=== PATIENT | female | born 1935 | race African-American/Black ===

== ENCOUNTER 2020-04-10 07:14 | Inpatient (IN) | payer MEDICARE, MEDICAID ==
[~2020-04-10] VITALS: Ht 165.1 cm; Wt 103.0 kg
[2020-04-10] VITALS (36 sets, daily range): BP systolic 108–182; BP diastolic 41–72
[2020-04-10] MEDS ORDERED: ALBUTEROL (0.5%) 2.5MG/0.5ML NEB HHN ONE (08:00)
[2020-04-10] MEDS ORDERED: ACETAMINOPHEN 650MG SUPP PR ONE (08:00)
[2020-04-10] MEDS ORDERED: IPRATROPIUM BROMIDE (0.02%) 0.5MG/2.5ML NEB HHN ONE (08:00)
[2020-04-10] MEDS ORDERED: LEVOFLOXACIN 500MG PREMIX 100 ML IV ONE (08:00)
[2020-04-10] MEDS ORDERED: CEFTRIAXONE 1 G PREMIX 50 ML IV ONE (08:00)
[2020-04-10 08:25] LABS: BG BASE EXCESS 9.8 mmol/L (-2.0-2.0); BG BILEVEL POS AIRWAY PRESSURE 18/5; BG CARBOXYHEMOGLOBIN 1.6 % (0.5-1.5); BG DEOXYHEMOGLOBIN 0.6 % (0.0-5.0); BG FRACTION INSPIRED OXYGEN 100; BG HCO3 ACT 42.7 mmol/L (22.0-26.0); BG METHEMOGLOBIN 0.2 % (0.0-1.5); BG OXYGEN SATURATION 99.4 % (92.0-98.5); BG OXYHEMOGLOBIN 97.6 % (94.0-97.0); BG PCO2 121.1 mmHg (35.0-45.0); BG PH 7.165 (7.350-7.450); BG PO2 224.4 mmHg (75.0-100.0); BG SAMPLE SITE RIGHT RADIAL; BG TOTAL HEMOGLOBIN 12.6 g/dL (12.0-18.0); BG VENT MODE MASK - BIPAP; BG VENT RATE 30 set
[2020-04-10 08:40] LABS: BASOPHILS % 0.2 % (0.0-2.0); EOSINOPHILS % 0.3 % (0.0-5.0); HEMATOCRIT. 40.7 % (36.0-48.0); HEMOGLOBIN. 12.4 g/dL (12.0-16.0); LYMPHOCYTES % 17.9 % (20.0-50.0); MEAN CORPUSCULAR HEMOGLOBIN 25.4 pg (28.0-32.0); MEAN CORPUSCULAR VOLUME 83.9 fL (81.0-99.0); MEAN PLATELET VOLUME 8.4 fl (7.4-10.4); MONOCYTES % 11.9 % (2.0-8.0); NEUTROPHILS % 69.7 % (40.0-76.0); PLATELET 202 x1000/uL (130-400); RED BLOOD CELL COUNT 4.86 mill/uL (4.2-5.4); RED CELL DISTRIBUTION WIDTH 20.6 % (11.6-14.6)
[2020-04-10 08:42] LABS: CHLORIDE 100 mEq/L (98-107)
[2020-04-10 10:40] LABS: BG BASE EXCESS 9.8 mmol/L (-2.0-2.0); BG BILEVEL POS AIRWAY PRESSURE 18/5; BG CARBOXYHEMOGLOBIN 1.1 % (0.5-1.5); BG DEOXYHEMOGLOBIN 4.1 % (0.0-5.0); BG HCO3 ACT 39.3 mmol/L (22.0-26.0); BG METHEMOGLOBIN 0.3 % (0.0-1.5); BG OXYGEN SATURATION 95.8 % (92.0-98.5); BG OXYHEMOGLOBIN 94.5 % (94.0-97.0); BG PCO2 82.5 mmHg (35.0-45.0); BG PH 7.296 (7.350-7.450); BG PO2 81.7 mmHg (75.0-100.0); BG SAMPLE SITE RIGHT RADIAL; BG TOTAL HEMOGLOBIN 12.4 g/dL (12.0-18.0); BG VENT MODE MASK - BIPAP; BG VENT RATE 30 set
[2020-04-10] MEDS ORDERED: ONDANSETRON HCL 4MG/2ML INJ IV PRN (13:45)
[2020-04-10] MEDS: SODIUM CHLORIDE 0.9% INJ 3ML FLUSH IVF SCH ×2 (14:40→21:54)
[2020-04-10 14:43] LABS: BG BASE EXCESS 9.8 mmol/L (-2.0-2.0); BG BILEVEL POS AIRWAY PRESSURE 18/5; BG CARBOXYHEMOGLOBIN 0.5 % (0.5-1.5); BG DEOXYHEMOGLOBIN 4.1 % (0.0-5.0); BG HCO3 ACT 39.1 mmol/L (22.0-26.0); BG METHEMOGLOBIN 0.3 % (0.0-1.5); BG OXYGEN SATURATION 95.9 % (92.0-98.5); BG OXYHEMOGLOBIN 95.1 % (94.0-97.0); BG PCO2 81.9 mmHg (35.0-45.0); BG PH 7.297 (7.350-7.450); BG PO2 80.8 mmHg (75.0-100.0); BG SAMPLE SITE RIGHT RADIAL; BG VENT MODE MASK - BIPAP; BG VENT RATE 30 set
[2020-04-10] MEDS: POTASSIUM CHLORIDE 20MEQ/PACKET PO SCH (15:00)
[2020-04-10] MEDS ORDERED: ENOXAPARIN 40MG/0.4ML SYR SUBCUT SCH (15:00)
[2020-04-10] MEDS: MIDAZOLAM HCL 100 MG in DEXT 5% WATER 80 ML IV PRN (16:30)
[2020-04-10] MEDS: FENTANYL CITRATE/PF 1,000 MCG in SODIUM CHLORIDE 0.9% 80 ML IV PRN (16:31)
[2020-04-10 16:37] LABS: BG BASE EXCESS 11.4 mmol/L (-2.0-2.0); BG CARBOXYHEMOGLOBIN 0.7 % (0.5-1.5); BG DEOXYHEMOGLOBIN 2.6 % (0.0-5.0); BG HCO3 ACT 35.4 mmol/L (22.0-26.0); BG METHEMOGLOBIN 0.1 % (0.0-1.5); BG OXYGEN SATURATION 97.4 % (92.0-98.5); BG OXYHEMOGLOBIN 96.6 % (94.0-97.0); BG PCO2 44.2 mmHg (35.0-45.0); BG PH 7.522 (7.350-7.450); BG PO2 77.9 mmHg (75.0-100.0); BG SAMPLE SITE RIGHT RADIAL; BG TIDAL VOLUME(mL) 500 mL; BG TOTAL HEMOGLOBIN 12.5 g/dL (12.0-18.0); BG VENT MODE VENT - A/C; BG VENT RATE 18 set
[2020-04-10] MEDS ORDERED: ACETAMINOPHEN 650MG SUPP PR PRN (17:00)
[2020-04-10] MEDS ORDERED: ACETAMINOPHEN 325MG TABLET PO PRN (17:00)
[2020-04-10] MEDS ORDERED: DIPHENHYDRAMINE 50MG/ML VIAL IV PRN (17:00)
[2020-04-10] MEDS: METHYLPREDNISOLONE SOD SUCC 40 MG/ML VIAL IV SCH (18:14)
[2020-04-10] MEDS: ASPIRIN 81MG TABLET PO SCH (18:14)
[2020-04-10] MEDS: FUROSEMIDE 20MG/2ML VIAL IVP SCH (18:14)
[2020-04-10] MEDS: PIPERACILLIN/TAZOBACTAM 3.375 G in DEXT 5% WATER 100 ML IV SCH ×2 (18:16→23:36)
[2020-04-10] MEDS: HYDRALAZINE 20MG/ML VIAL IV PRN (18:17)
[2020-04-10 19:24] LABS: CREATINE KINASE 26 IU/L (26-192)
[2020-04-10 19:25] LABS: CREATINE KINASE MB FRACTION < 1.0 ng/mL (0.5-3.6)
[2020-04-10] MEDS ORDERED: CALC-889 MT (20:19)
[2020-04-10] MEDS ORDERED: POLY15DR31 EACHEYE (20:19)
[2020-04-10] MEDS ORDERED: ASPI-1079 PO (20:19)
[2020-04-10] MEDS ORDERED: POTA-9 PO (20:19)
[2020-04-10] MEDS ORDERED: FURO40TA5 PO (20:19)
[2020-04-10] MEDS ORDERED: OMEP20TA2 PO (20:19)
[2020-04-10] MEDS ORDERED: ATEN100T PO (20:19)
[2020-04-10] MEDS ORDERED: IBUP-2437 PO (20:19)
[2020-04-10] MEDS ORDERED: MULT-1146 PO (20:19)
[2020-04-10] MEDS ORDERED: ISOS20TA57 PO (20:19)
[2020-04-10] MEDS ORDERED: NIFE-32 PO (20:19)
[2020-04-10] MEDS ORDERED: TAMS-11 PO (20:19)
[2020-04-11] VITALS (90 sets, daily range): BP systolic 110–192; BP diastolic 40–74
[2020-04-11] MEDS: METHYLPREDNISOLONE SOD SUCC 40 MG/ML VIAL IV SCH ×3 (02:05→19:51)
[2020-04-11] MEDS: HYDRALAZINE 20MG/ML VIAL IV PRN ×2 (03:25→12:56)
[2020-04-11] MEDS: MIDAZOLAM HCL 100 MG in DEXT 5% WATER 80 ML IV PRN ×2 (03:40→15:59)
[2020-04-11] MEDS: FENTANYL CITRATE/PF 1,000 MCG in SODIUM CHLORIDE 0.9% 80 ML IV PRN (04:08)
[2020-04-11 06:03] LABS: HEMATOCRIT. 40.2 % (36.0-48.0); HEMOGLOBIN. 12.4 g/dL (12.0-16.0); MEAN CORPUSCULAR HEMOGLOBIN 25.2 pg (28.0-32.0); MEAN CORPUSCULAR VOLUME 81.3 fL (81.0-99.0); MEAN PLATELET VOLUME 8.1 fl (7.4-10.4); PLATELET 185 x1000/uL (130-400); RED BLOOD CELL COUNT 4.95 mill/uL (4.2-5.4); RED CELL DISTRIBUTION WIDTH 20.3 % (11.6-14.6)
[2020-04-11] MEDS: PIPERACILLIN/TAZOBACTAM 3.375 G in DEXT 5% WATER 100 ML IV SCH ×3 (06:04→19:51)
[2020-04-11] MEDS: SODIUM CHLORIDE 0.9% INJ 3ML FLUSH IVF SCH ×3 (06:10→22:45)
[2020-04-11 06:13] LABS: CHLORIDE 100 mEq/L (98-107)
[2020-04-11] MEDS: FUROSEMIDE 20MG/2ML VIAL IVP SCH ×2 (06:13→19:52)
[2020-04-11 06:22] LABS: LDL CHOLESTEROL 79 mg/dL (5-100)
[2020-04-11 06:24] LABS: HDL CHOLESTEROL 25 mg/dL (40-59)
[2020-04-11] MEDS ORDERED: LEVOFLOXACIN 500MG PREMIX 100 ML IV SCH (08:00)
[2020-04-11 08:36] LABS: BG CARBOXYHEMOGLOBIN 0.3 % (0.5-1.5); BG DEOXYHEMOGLOBIN 1.4 % (0.0-5.0); BG FRACTION INSPIRED OXYGEN 60; BG HCO3 ACT 35.9 mmol/L (22.0-26.0); BG METHEMOGLOBIN 0.3 % (0.0-1.5); BG OXYGEN SATURATION 98.6 % (92.0-98.5); BG PCO2 38.8 mmHg (35.0-45.0); BG PH 7.584 (7.350-7.450); BG PO2 124.6 mmHg (75.0-100.0); BG SAMPLE SITE RIGHT RADIAL; BG TIDAL VOLUME(mL) 500 mL; BG TOTAL HEMOGLOBIN 10.9 g/dL (12.0-18.0); BG VENT MODE VENT - A/C; BG VENT RATE 16 set
[2020-04-11 10:07] LABS: PLATELET ESTIMATE NORMAL
[2020-04-11] MEDS: POTASSIUM CHLORIDE 20MEQ/PACKET PO SCH (10:53)
[2020-04-11] MEDS: ASPIRIN 81MG TABLET PO SCH (10:53)
[2020-04-11] MEDS: LACTULOSE 20G/30ML UDC PO SCH ×2 (14:40→22:45)
[2020-04-11 15:52] LABS: BG BASE EXCESS 6.2 mmol/L (-2.0-2.0); BG CARBOXYHEMOGLOBIN 0.5 % (0.5-1.5); BG DEOXYHEMOGLOBIN 2.2 % (0.0-5.0); BG FRACTION INSPIRED OXYGEN 50; BG HCO3 ACT 29.7 mmol/L (22.0-26.0); BG METHEMOGLOBIN 0.2 % (0.0-1.5); BG OXYGEN SATURATION 97.8 % (92.0-98.5); BG OXYHEMOGLOBIN 97.1 % (94.0-97.0); BG PCO2 39.2 mmHg (35.0-45.0); BG PH 7.498 (7.350-7.450); BG PO2 102.4 mmHg (75.0-100.0); BG PRESSURE SUPPORT 8; BG SAMPLE SITE RIGHT RADIAL; BG TIDAL VOLUME(mL) 500 mL; BG TOTAL HEMOGLOBIN 13.3 g/dL (12.0-18.0); BG VENT MODE VENT - SIMV; BG VENT RATE 10 set
[2020-04-11 18:04] LABS: D-DIMER 2.59 mg/L FEU (<0.50); INR 1.1; PROTHROMBIN TIME 11.9 sec (9.6-11.0)
[2020-04-11 18:26] LABS: CLARITY URINE CLEAR (CLEAR); KETONES URINE 2+ (NEGATIVE); LEUKOCYTE ESTERASE URINE NEGATIVE (NEGATIVE); NITRITE URINE NEGATIVE (NEGATIVE); OCCULT BLOOD URINE NEGATIVE (NEGATIVE); PROTEIN URINE NEGATIVE (NEGATIVE); SPECIFIC GRAVITY URINE 1.017 (1.005-1.030); UROBILINOGEN URINE 0.2 E.U./dL (0.2-1.0)
[2020-04-11 18:28] LABS: COLOR URINE YELLOW (YELLOW)
[2020-04-11 18:40] LABS: *AMPHETAMINES SCREEN URINE NEGATIVE (NEGATIVE); *BARBITURATES SCREEN URINE NEGATIVE (NEGATIVE)
[2020-04-11 18:41] LABS: *BENZODIAZEPINES SCREEN URINE PRESUMTIVE POSITIVE (NEGATIVE); *COCAINE SCREEN URINE NEGATIVE (NEGATIVE); CANNABINOID URINE SCREEN NEGATIVE (NEGATIVE); METHADONE URINE SCREEN NEGATIVE (NEGATIVE); OPIATES URINE SCREEN NEGATIVE (NEGATIVE); PHENCYCLIDINE URINE SCREEN NEGATIVE (NEGATIVE)
[2020-04-11] MEDS: ENOXAPARIN 30MG/0.3ML SYR SUBCUT SCH (20:17)
[2020-04-11] MEDS: IPRATROPIUM/ALBUTEROL 0.5-3(2.5)MG/3ML NEB HHN PRN (20:20)
[2020-04-11 20:29] LABS: BG BASE EXCESS 5.4 mmol/L (-2.0-2.0); BG CARBOXYHEMOGLOBIN 0.8 % (0.5-1.5); BG DEOXYHEMOGLOBIN 1.9 % (0.0-5.0); BG FRACTION INSPIRED OXYGEN 50; BG HCO3 ACT 33.6 mmol/L (22.0-26.0); BG METHEMOGLOBIN 0.2 % (0.0-1.5); BG OXYGEN SATURATION 98.1 % (92.0-98.5); BG OXYHEMOGLOBIN 97.1 % (94.0-97.0); BG PCO2 67.7 mmHg (35.0-45.0); BG PH 7.314 (7.350-7.450); BG PO2 119.2 mmHg (75.0-100.0); BG PRESSURE SUPPORT 8; BG SAMPLE SITE RIGHT RADIAL; BG TOTAL HEMOGLOBIN 12.8 g/dL (12.0-18.0); BG VENT MODE VENT - CPAP
[2020-04-11] MEDS: HYDRALAZINE HCL 25MG TABLET PO SCH (22:45)
[2020-04-12] VITALS (76 sets, daily range): BP systolic 125–181; BP diastolic 49–86
[2020-04-12] MEDS: PIPERACILLIN/TAZOBACTAM 3.375 G in DEXT 5% WATER 100 ML IV SCH ×5 (00:01→23:38)
[2020-04-12] MEDS: IPRATROPIUM/ALBUTEROL 0.5-3(2.5)MG/3ML NEB HHN PRN ×4 (04:34→16:12)
[2020-04-12] MEDS: SODIUM CHLORIDE 0.9% INJ 3ML FLUSH IVF SCH ×3 (05:27→22:00)
[2020-04-12] MEDS: FUROSEMIDE 20MG/2ML VIAL IVP SCH ×2 (05:27→18:15)
[2020-04-12] MEDS: METHYLPREDNISOLONE SOD SUCC 40 MG/ML VIAL IV SCH ×2 (05:27→18:15)
[2020-04-12] MEDS: LACTULOSE 20G/30ML UDC PO SCH ×4 (05:28→22:00)
[2020-04-12] MEDS: HYDRALAZINE HCL 25MG TABLET PO SCH ×3 (05:28→20:45)
[2020-04-12 05:36] LABS: BASOPHILS % 0.2 % (0.0-2.0); HEMATOCRIT. 41.8 % (36.0-48.0); HEMOGLOBIN. 13.4 g/dL (12.0-16.0); LYMPHOCYTES % 7.3 % (20.0-50.0); MEAN CORPUSCULAR HEMOGLOBIN 25.4 pg (28.0-32.0); MEAN CORPUSCULAR VOLUME 78.9 fL (81.0-99.0); MEAN PLATELET VOLUME 8.5 fl (7.4-10.4); MONOCYTES % 4.5 % (2.0-8.0); PLATELET 200 x1000/uL (130-400); RED BLOOD CELL COUNT 5.29 mill/uL (4.2-5.4)
[2020-04-12 05:47] LABS: CHLORIDE 101 mEq/L (98-107)
[2020-04-12 05:52] LABS: PHOSPHORUS 1.9 mg/dL (2.5-4.9)
[2020-04-12 06:27] LABS: HEPATITIS B SURFACE ANTIGEN NEGATIVE
[2020-04-12 06:57] LABS: HEPATITIS A AB IGM NEGATIVE (NEGATIVE)
[2020-04-12] MEDS: ENOXAPARIN 30MG/0.3ML SYR SUBCUT SCH ×2 (09:00→20:46)
[2020-04-12] MEDS: ASPIRIN 81MG TABLET PO SCH (09:00)
[2020-04-12] MEDS: POTASSIUM CHLORIDE 20MEQ/PACKET PO SCH (09:00)
[2020-04-12 11:03] LABS: BG BASE EXCESS 5.9 mmol/L (-2.0-2.0); BG CARBOXYHEMOGLOBIN 0.6 % (0.5-1.5); BG DEOXYHEMOGLOBIN 3.2 % (0.0-5.0); BG FRACTION INSPIRED OXYGEN 35; BG METHEMOGLOBIN 0.3 % (0.0-1.5); BG OXYGEN SATURATION 96.8 % (92.0-98.5); BG OXYHEMOGLOBIN 95.9 % (94.0-97.0); BG PCO2 41.4 mmHg (35.0-45.0); BG PH 7.478 (7.350-7.450); BG PO2 90.8 mmHg (75.0-100.0); BG PRESSURE SUPPORT 10; BG SAMPLE SITE RIGHT RADIAL; BG TOTAL HEMOGLOBIN 13.6 g/dL (12.0-18.0); BG VENT MODE VENT - CPAP
[2020-04-12] MEDS ORDERED: LIDOCAINE HCL 1% 20ML VIAL (Pyxis) INJ ONE (11:55)
[2020-04-12 15:26] LABS: BG BASE EXCESS 6.3 mmol/L (-2.0-2.0); BG CARBOXYHEMOGLOBIN 0.9 % (0.5-1.5); BG DEOXYHEMOGLOBIN 3.9 % (0.0-5.0); BG FRACTION INSPIRED OXYGEN 40; BG METHEMOGLOBIN 0.2 % (0.0-1.5); BG OXYGEN SATURATION 96.1 % (92.0-98.5); BG PCO2 63.3 mmHg (35.0-45.0); BG PH 7.348 (7.350-7.450); BG PO2 91.5 mmHg (75.0-100.0); BG SAMPLE SITE RIGHT RADIAL; BG TOTAL HEMOGLOBIN 13.5 g/dL (12.0-18.0); BG VENT MODE MASK - AEROSOL
[2020-04-12] MEDS: HYDRALAZINE 20MG/ML VIAL IV PRN (16:30)
[2020-04-13] VITALS (39 sets, daily range): BP systolic 133–177; BP diastolic 45–81
[2020-04-13 05:47] LABS: HEMATOCRIT. 39.9 % (36.0-48.0); HEMOGLOBIN. 12.4 g/dL (12.0-16.0); MEAN CORPUSCULAR HEMOGLOBIN 25.4 pg (28.0-32.0); MEAN CORPUSCULAR VOLUME 81.4 fL (81.0-99.0); MEAN PLATELET VOLUME 8.5 fl (7.4-10.4); PLATELET 178 x1000/uL (130-400); RED CELL DISTRIBUTION WIDTH 20.6 % (11.6-14.6)
[2020-04-13] MEDS: PIPERACILLIN/TAZOBACTAM 3.375 G in DEXT 5% WATER 100 ML IV SCH ×3 (05:48→18:20)
[2020-04-13] MEDS: HYDRALAZINE HCL 25MG TABLET PO SCH ×3 (05:49→22:04)
[2020-04-13] MEDS: FUROSEMIDE 20MG/2ML VIAL IVP SCH ×2 (05:49→18:09)
[2020-04-13] MEDS: LACTULOSE 20G/30ML UDC PO SCH ×3 (05:50→22:03)
[2020-04-13] MEDS: SODIUM CHLORIDE 0.9% INJ 3ML FLUSH IVF SCH ×3 (05:50→22:04)
[2020-04-13] MEDS: METHYLPREDNISOLONE SOD SUCC 40 MG/ML VIAL IV SCH ×2 (05:53→18:09)
[2020-04-13 06:05] LABS: CHLORIDE 100 mEq/L (98-107)
[2020-04-13] MEDS: POTASSIUM CHLORIDE 20MEQ/PACKET PO SCH (08:02)
[2020-04-13] MEDS: ASPIRIN 81MG TABLET PO SCH (08:02)
[2020-04-13] MEDS: ENOXAPARIN 30MG/0.3ML SYR SUBCUT SCH ×2 (08:02→22:03)
[2020-04-13] MEDS: HYDRALAZINE 20MG/ML VIAL IV PRN (08:06)
[2020-04-13] MEDS ORDERED: POTASSIUM CHLORIDE 20MEQ TABLET SR PO SCH (09:10)
[2020-04-13 14:02] LABS: NUCLEATED RED BLOOD CELLS 1 /100 WBC; PLATELET ESTIMATE NORMAL
[2020-04-14] VITALS (8 sets, daily range): BP systolic 139–160; BP diastolic 54–95
[2020-04-14] MEDS: PIPERACILLIN/TAZOBACTAM 3.375 G in DEXT 5% WATER 100 ML IV SCH ×3 (00:39→12:18)
[2020-04-14] MEDS: FUROSEMIDE 20MG/2ML VIAL IVP SCH ×2 (05:37→17:39)
[2020-04-14] MEDS: METHYLPREDNISOLONE SOD SUCC 40 MG/ML VIAL IV SCH (05:37)
[2020-04-14] MEDS: LACTULOSE 20G/30ML UDC PO SCH ×2 (05:38→15:52)
[2020-04-14] MEDS: SODIUM CHLORIDE 0.9% INJ 3ML FLUSH IVF SCH ×3 (05:41→22:51)
[2020-04-14] MEDS: HYDRALAZINE HCL 25MG TABLET PO SCH ×3 (05:41→22:51)
[2020-04-14 06:25] LABS: BASOPHILS % 0.1 % (0.0-2.0); HEMATOCRIT. 42.6 % (36.0-48.0); HEMOGLOBIN. 13.4 g/dL (12.0-16.0); LYMPHOCYTES % 9.6 % (20.0-50.0); MEAN CORPUSCULAR HEMOGLOBIN 25.3 pg (28.0-32.0); MEAN CORPUSCULAR VOLUME 80.2 fL (81.0-99.0); MEAN PLATELET VOLUME 8.7 fl (7.4-10.4); MONOCYTES % 7.3 % (2.0-8.0); PLATELET 177 x1000/uL (130-400); RED BLOOD CELL COUNT 5.31 mill/uL (4.2-5.4); RED CELL DISTRIBUTION WIDTH 20.6 % (11.6-14.6)
[2020-04-14 06:34] LABS: CHLORIDE 100 mEq/L (98-107)
[2020-04-14] MEDS: ASPIRIN 81MG TABLET PO SCH (09:24)
[2020-04-14] MEDS: POTASSIUM CHLORIDE 20MEQ/PACKET PO SCH ×2 (09:24→16:33)
[2020-04-14] MEDS: ENOXAPARIN 30MG/0.3ML SYR SUBCUT SCH ×2 (09:25→22:47)
[2020-04-14] MEDS ORDERED: POTASSIUM CHLORIDE 20MEQ TABLET SR PO NR (16:00)
[2020-04-15] MEDS: FUROSEMIDE 20MG/2ML VIAL IVP SCH (05:58)
[2020-04-15] MEDS: HYDRALAZINE HCL 25MG TABLET PO SCH ×2 (05:59→14:00)
[2020-04-15] MEDS: SODIUM CHLORIDE 0.9% INJ 3ML FLUSH IVF SCH ×2 (05:59→13:12)
[2020-04-15 06:24] LABS: BASOPHILS % 0.2 % (0.0-2.0); EOSINOPHILS % 0.2 % (0.0-5.0); HEMOGLOBIN. 12.8 g/dL (12.0-16.0); LYMPHOCYTES % 16.4 % (20.0-50.0); MEAN CORPUSCULAR HEMOGLOBIN 24.9 pg (28.0-32.0); MEAN CORPUSCULAR VOLUME 79.7 fL (81.0-99.0); MEAN PLATELET VOLUME 8.8 fl (7.4-10.4); NEUTROPHILS % 73.2 % (40.0-76.0); PLATELET 161 x1000/uL (130-400); RED BLOOD CELL COUNT 5.14 mill/uL (4.2-5.4)
[2020-04-15 06:35] LABS: CHLORIDE 99 mEq/L (98-107)
[2020-04-15 08:00] VITALS: BP 145/74
[2020-04-15] MEDS: ENOXAPARIN 30MG/0.3ML SYR SUBCUT SCH (08:46)
[2020-04-15] MEDS: ASPIRIN 81MG TABLET PO SCH (08:46)
[2020-04-15] MEDS ORDERED: METHYLPREDNISOLONE SOD SUCC 40 MG/ML VIAL IV SCH (09:00)
[2020-04-15 12:00] VITALS: BP 149/78
[2020-04-15 13:00] VITALS: BP 162/82
[2020-04-15] MEDS: POTASSIUM CHLORIDE 20MEQ/PACKET PO SCH (13:12)
[2020-04-15] MEDS: HYDRALAZINE 20MG/ML VIAL IV PRN (13:12)
[2020-04-15 13:33] VITALS: BP 149/78
[2020-04-15 14:00] VITALS: BP 133/54
== END 2020-04-15 15:40 | DRG 208 ==
LOC: ER 07:14 → EDBEDREQSVC 09:26 → EDBEDREQ 10:17 → EDBEDREQSVC 10:42 → EDBEDREQ 10:58 → EDBEDREQTM 10:58 → EDBEDREQ 11:05 → EDBEDREQTM 11:05 → MICUSO 11:14 → ENRESERV 11:15 → EDBEDREQSVC 11:17 → EDBEDREQTM 11:17 → 5EST 04-13 10:45
PROVIDERS: ADMIT Ophthalmology; ATTEND Ophthalmology
PROC: 5A1945Z Respiratory Ventilation, 24-96 Consecutive Hours (ICD-10-PCS; 2020-04-10)
PROC: 5A09357 Assistance with Respiratory Ventilation, Less than 24 Consecutive Hours, Continuous Positive Airway Pressure (ICD-10-PCS; 2020-04-10)
PROC: 0BH17EZ Insertion of Endotracheal Airway into Trachea, Via Natural or Artificial Opening (ICD-10-PCS; 2020-04-10)
PROC: 05HY33Z Insertion of Infusion Device into Upper Vein, Percutaneous Approach (ICD-10-PCS; principal; 2020-04-12)
PROC: B54MZZA Ultrasonography of Right Upper Extremity Veins, Guidance (ICD-10-PCS; 2020-04-12)
PROC: 5A09357 Assistance with Respiratory Ventilation, Less than 24 Consecutive Hours, Continuous Positive Airway Pressure (ICD-10-PCS; 2020-04-15)
DX: J96.22 Acute and chronic respiratory failure with hypercapnia (principal); J69.0 Pneumonitis due to inhalation of food and vomit; G93.41 Metabolic encephalopathy; I50.33 Acute on chronic diastolic (congestive) heart failure; E72.20 Disorder of urea cycle metabolism, unspecified; E66.2 Morbid (severe) obesity with alveolar hypoventilation; I11.0 Hypertensive heart disease with heart failure; R00.1 Bradycardia, unspecified; J44.9 Chronic obstructive pulmonary disease, unspecified; Z20.828 Contact with and (suspected) exposure to other viral communicable diseases; Z79.899 Other long term (current) drug therapy; Z68.37 Body mass index [BMI] 37.0-37.9, adult
CPT/HCPCS: 36415; 36600; 71045; 76937; 78580; 80048; 80053; 80061; 80305; 81003; 82140; 82375; 82550; 82553; 82805; 82962; 83036; 83605; 83735; 83880; 84100; 84145; 84484; 85025; 85379; 86705; 86709; 86803; 86850; 86900; 87070; 87340; 87635; 92610; 93005; 93306; 93970; 94002; 94003; 94640; 94660; 97116; 97162; 99291; C1725; J0360; J0696; J1200; J1650; J1940; J1956; J2250; J2543; J2920; J3010; J3490; J7050; J7060